=== PATIENT | male | born 1950 | race Caucasian/White ===

== ENCOUNTER 2017-06-22 07:41 | Emergency (ER) | payer MEDICARE, BC ==
--- NOTE | 2017-06-22 07:55 | EDM.PDOC ---
ED HPI GENERAL MEDICAL PROBLEM - General Chief Complaint: Skin Complaint Stated Complaint: LEFT LEG BLEEDING Time Seen by Provider: 06/22/17 07:46 - History of Present Illness INITIAL COMMENTS - FREE TEXT/NARRATIVE: HISTORY AND PHYSICAL: History of present illness: Patient 66-year-old male presents with a concern of bleeding from his left leg he states he had a small excoriated area that he scratched and it bled somewhat more significantly than he expected. He denies other trauma or concern Review of systems: As per history of present illness and below otherwise all systems reviewed and negative. Past medical history: As per history of present illness and as reviewed below otherwise noncontributory. Surgical history: As per history of present illness and as reviewed below otherwise noncontributory. Social history: No reported history of drug or alcohol abuse. Family history: As per history of present illness and as reviewed below otherwise noncontributory. Physical exam: HEENT: Atraumatic, normocephalic, pupils reactive, negative for conjunctival pallor or scleral icterus, mucous membranes moist, throat clear, neck supple, nontender, trachea midline. Lungs: Clear to auscultation, breath sounds equal bilaterally, chest nontender. Heart: S1S2, regular, negative for clicks, rubs, or JVD. Abdomen: Soft, nondistended, nontender. Negative for masses or hepatosplenomegaly. Negative for costovertebral tenderness. Pelvis: Stable nontender. Genitourinary: Deferred. Rectal: Deferred. Extremities: Patient is noted have a superficial varicosity left lateral aspect of his leg distally is good hemostasis upon arrival was cleansed and dressed with an occlusive dressing CMS neurovascular is unremarkable Neuro: Awake, alert, oriented. Cranial nerves II through XII unremarkable. Cerebellum unremarkable. Motor and sensory unremarkable throughout. Exam nonfocal. Diagnostics: None Therapeutics: None Impression: #1 bleeding varicosity left lower extremity Definitive disposition and diagnosis as appropriate pending reevaluation and review of above. - Related Data Allergies Allergy/AdvReac Type Severity Reaction Status Date / Time No Known Allergies Allergy Verified 10/07/14 08:28 Home Meds: Home Meds Aspirin [Adult Low Dose Aspirin EC] 81 mg PO BID PRN 01/01/15 [History] Clopidogrel [Plavix] 75 mg PO DAILY 01/01/15 [History] HYDROmorphone [Dilaudid] 2 mg PO Q3H 01/01/15 [History] Metoprolol Tartrate [Lopressor] 25 mg PO BID 01/01/15 [History] Multivitamin [Multivitamins] 1 cap PO DAILY 01/01/15 [History] Nitroglycerin [Nitrostat] 0.4 mg SL Q5M PRN 01/01/15 [History] Vitamin A 5,000 units PO DAILY 01/01/15 [History] Vitamin B Complex 1 each PO DAILY 01/01/15 [History] atorvaSTATin [Lipitor] 40 mg PO BEDTIME 01/01/15 [History] Social & Family History - Tobacco Use Smoking Status *Q: Former Smoker Second Hand Smoke Exposure: No - Recreational Drug Use Recreational Drug Use: No ED ROS GENERAL - Review of Systems Review Of Systems: ROS reveals no pertinent complaints other than HPI. ED EXAM, SKIN/RASH Exam: See Below (See dictation) Departure - Departure Time of Disposition: 07:54 Disposition: Home, Self-Care 01 Condition: Good Clinical Impression: Bleeding from varicose vein - Discharge Information Referrals: PCP,None [Primary Care Provider] - Additional Instructions: The following information is given to patients seen in the emergency department who are being discharged to home. This information is to outline your options for follow-up care. We provide all patients seen in our emergency department with a follow-up referral. The need for follow-up, as well as the timing and circumstances, are variable depending upon the specifics of your emergency department visit. If you don't have a primary care physician on staff, we will provide you with a referral. We always advise you to contact your personal physician following an emergency department visit to inform them of the circumstance of the visit and for follow-up with them and/or the need for any referrals to a consulting specialist. The emergency department will also refer you to a specialist when appropriate. This referral assures that you have the opportunity for followup care with a specialist. All of these measure are taken in an effort to provide you with optimal care, which includes your followup. Under all circumstances we always encourage you to contact your private physician who remains a resource for coordinating your care. When calling for followup care, please make the office aware that this follow-up is from your recent emergency room visit. If for any reason you are refused follow-up, please contact the [facility] emergency department at and asked to speak to the emergency department charge nurse. [facility] [address] [place] [id number] Follow-up primary medical doctor and/or plastic surgery above as needed as discussed return as needed as discussed
[2017-06-22 08:00] VITALS: BP 121/86
== END 2017-06-22 08:10 | disposition home or self-care (01) ==
LOC: MW.ED 07:41
DX: I83.892 Varicose veins of left lower extremity with other complications (principal); Z79.82 Long term (current) use of aspirin; Z79.899 Other long term (current) drug therapy; Z87.891 Personal history of nicotine dependence
CPT/HCPCS: 99282

== ENCOUNTER 2019-04-20 17:08 | Emergency (ER) | payer MEDICARE, BC ==
[2019-04-20 17:30] VITALS: BP 126/90; PULSE 92
--- NOTE | 2019-04-20 19:01 | EDM.PDOC ---
ED HPI GENERAL MEDICAL PROBLEM - General Chief Complaint: ENT Problem Stated Complaint: FACIAL SWELLING/FEVER Time Seen by Provider: 04/20/19 18:56 - History of Present Illness INITIAL COMMENTS - FREE TEXT/NARRATIVE: HISTORY AND PHYSICAL: History of present illness: Patient is a 68-year-old male presents ot [facility] ED with complaint of facial pain and redness. He states he had a fever of 104 yesterday. States that he has felt well today but still having redness to the right side of his face and states it is slightly tender. He has had some dental pain but this is not new or worsened. He denies nausea, vomiting, headache, eye pain. Review of systems: As per history of present illness and below otherwise all systems reviewed and negative. Past medical history: As per history of present illness and as reviewed below otherwise noncontributory. Surgical history: As per history of present illness and as reviewed below otherwise noncontributory. Social history: No reported history of drug or alcohol abuse. Family history: As per history of present illness and as reviewed below otherwise noncontributory. Physical exam: General: Patient sitting comfortably in no acute distress and nontoxic appearing HEENT: Erythema and warmth to the left side fo the face and forehead bilaterally. No dental abscess or infection noted. Atraumatic, normocephalic, pupils reactive, negative for conjunctival pallor or scleral icterus, mucous membranes moist, throat clear, neck supple, nontender, trachea midline. No meningeal signs. Lungs: Clear to auscultation, breath sounds equal bilaterally, chest nontender. Heart: S1S2, regular, negative for clicks, rubs, or overt murmur. Abdomen: Soft, nondistended, nontender. Negative for masses or hepatosplenomegaly. Negative for costovertebral tenderness. No rigidity, rebound , guarding. Pelvis: Stable nontender. Genitourinary: Deferred. Rectal: Deferred. Extremities: Atraumatic, negative for cords or calf pain. Neurovascular unremarkable. Neuro: Awake, alert, oriented. Cranial nerves II through XII unremarkable. Cerebellum unremarkable. Motor and sensory unremarkable throughout. Exam nonfocal. Notes: Patient was offered IV antibiotics and labs which he declined. Diagnostics: declined Therapeutics: [] Prescriptions: Keflex Prednisone Impression: facial cellulitis Definitive disposition and diagnosis as appropriate pending reevaluation and review of above. - Related Data Allergies Allergy/AdvReac Type Severity Reaction Status Date / Time No Known Allergies Allergy Verified 04/20/19 17:30 Home Meds: Home Meds Aspirin [Adult Low Dose Aspirin EC] 81 mg PO BID PRN 01/01/15 [History] Metoprolol Tartrate [Lopressor] 25 mg PO BID 01/01/15 [History] Multivitamin [Multivitamins] 1 cap PO DAILY 01/01/15 [History] Nitroglycerin [Nitrostat] 0.4 mg SL Q5M PRN 01/01/15 [History] Vitamin A 5,000 units PO DAILY 01/01/15 [History] Vitamin B Complex 1 each PO DAILY 01/01/15 [History] atorvaSTATin [Lipitor] 40 mg PO BEDTIME 01/01/15 [History] cephALEXin [Keflex] 500 mg PO Q8H 7 Days #21 cap 04/20/19 [Rx] predniSONE [Prednisone] 20 mg PO DAILY #5 tablet 04/20/19 [Rx] Past Medical History HEENT History: Reports: Impaired Vision Cardiovascular History: Reports: Hypertension - Infectious Disease History Infectious Disease History: Reports: Chicken Pox, Measles Social & Family History - Family History Family Medical History: Noncontributory - Tobacco Use Smoking Status *Q: Never Smoker - Recreational Drug Use Recreational Drug Use: No ED ROS ENT - Review of Systems Review Of Systems: Comprehensive ROS is negative, except as noted in HPI. ED EXAM, ENT - Physical Exam Exam: See Below (see dictation) Course - Vital Signs Last Recorded V/S: Last Vital Signs Temp 98.6 F 04/20/19 17:26 Pulse 92 04/20/19 17:26 Resp 16 04/20/19 17:26 BP 126/90 04/20/19 17:26 Pulse Ox 94 L 04/20/19 17:26 Departure - Departure Time of Disposition: 18:56 Disposition: Home, Self-Care 01 Condition: Good Clinical Impression: Facial cellulitis - Discharge Information Prescriptions: cephALEXin [Keflex] 500 mg PO Q8H 7 Days #21 cap predniSONE [Prednisone] 20 mg PO DAILY #5 tablet Referrals: Jaquan Osman MD [Primary Care Provider] - Additional Instructions: The following information is given to patients seen in the emergency department who are being discharged to home. This information is to outline your options for follow-up care. We provide all patients seen in our emergency department with a follow-up referral. The need for follow-up, as well as the timing and circumstances, are variable depending upon the specifics of your emergency department visit. If you don't have a primary care physician on staff, we will provide you with a referral. We always advise you to contact your personal physician following an emergency department visit to inform them of the circumstance of the visit and for follow-up with them and/or the need for any referrals to a consulting specialist. The emergency department will also refer you to a specialist when appropriate. This referral assures that you have the opportunity for follow-up care with a specialist. All of these measure are taken in an effort to provide you with optimal care, which includes your follow-up. Under all circumstances we always encourage you to contact your private physician who remains a resource for coordinating your care. When calling for follow-up care, please make the office aware that this follow-up is from your recent emergency room visit. If for any reason you are refused follow-up, please contact the [facility] Emergency Department at and asked to speak to the emergency department charge nurse. [facility] [address] [place] [address] [id number] Take medications as instructed Follow up with primary care provider Return to ED as needed as discussed Sepsis Event Note - Evaluation Sepsis Screening Result: No Definite Risk - Focused Exam Vital Signs: Vital Signs Temp Pulse Resp BP Pulse Ox 04/20/19 17:26 98.6 F 92 16 126/90 94 L Date Exam was Performed: 04/20/19 Time Exam was Performed: 18:56
== END 2019-04-20 19:09 | disposition home or self-care (01) ==
LOC: MW.ED 17:08
DX: L03.211 Cellulitis of face (principal); I10 Essential (primary) hypertension; Z79.82 Long term (current) use of aspirin; Z79.899 Other long term (current) drug therapy
CPT/HCPCS: 99283

== ENCOUNTER 2020-11-17 12:37 | Emergency (ER) | payer MEDICARE ==
[2020-11-17] MEDS ORDERED: Sodium Chloride 0.9% 10 ML SDV IV PRN (13:14)
[2020-11-17] MEDS ORDERED: Sodium Chloride 0.9% 10 ML Syringe FLUSH PRN (13:14)
[2020-11-17] MEDS ORDERED: Sodium Chloride 0.9% 2.5 ML Syringe FLUSH PRN (13:14)
--- NOTE | 2020-11-17 13:22 | PCM.SN.2 ---
- Free Text/Narrative Note: EKG 1309 hrs. sinus rhythm heart rate 60 VT [address] changes in the lateral leads and T changes as well. Compared to 01/01/2015 no change impression no acute injury
--- NOTE | 2020-11-17 13:27 | EDM.PDOC ---
ED HPI GENERAL MEDICAL PROBLEM - General Chief Complaint: General Stated Complaint: DIZZY,EYES CANT FOCUS,COUGH Time Seen by Provider: 11/17/20 13:10 Source of Information: Reports: Patient History Limitations: Reports: No Limitations - History of Present Illness INITIAL COMMENTS - FREE TEXT/NARRATIVE: HISTORY AND PHYSICAL: History of present illness: Patient is a 69-year-old male who presents to the emergency room with complaints of blurred vision, weakness, body aches, cough and subjective fevers over the past 3 to 4 days. A family member who is at bedside states that he has been under a considerable amount of stress over the past 1 week. Patient's mother last week, and held the and his brother was recently sent to [facility] in [place] to receive higher level of care. The family member states that he has been very drowsy, complaining of chest pain and saying he is "so sore he cannot get out of bed". Patient was in crowded groups and is concerned he may have caught COVID-19. Patient states he did have an episode of dizziness and blurred vision this morning which is now resolved. Last episode of chest pain was yesterday, currently chest pain free. The family member did call his provider at [facility] who recommended he come for an evaluation. The patient is not able to be seen at the clinic until Tuesday and decided to come to the emergency room to get "a full checkup". Patient denies any chills, headache, syncope or near syncope. Denies any back pain, shortness of breath or cough. Denies any abdominal pain, nausea, vomiting, diarrhea, constipation or dysuria. Has not noted any blood in urine or stool. Patient has been eating and drinking appropriately. Patient has a past medical history of hypertension, [place] with bypass. Review of systems: As per history of present illness and below otherwise all systems reviewed and negative. Past medical history: As per history of present illness and as reviewed below otherwise noncontributory. Surgical history: As per history of present illness and as reviewed below otherwise noncontributory. Social history: See social history for further information Family history: As per history of present illness and as reviewed below otherwise noncontributory. Physical exam: General: Well developed and well nourished 69 year old male. Alert and orientated x 3. Nontoxic in appearance and in no acute distress. Vital signs are stable and have been reviewed by me. Nursing notes were reviewed. HEENT: Atraumatic, normocephalic, pupils equal and reactive bilaterally, negativ e for conjunctival pallor or scleral icterus, mucous membranes moist, TMs normal bilaterally, throat clear, neck supple, nontender, trachea midline. No drooling or trismus noted. No meningeal signs. No hot potato voice noted. Lungs: Clear to auscultation bilaterally. No wheezes, rales, or rhonchi. Chest nontender. Normal work of breathing, no accessory muscles used. Heart: S1S2, regular rate and rhythm without overt murmur, gallops, or rubs. No JVD. No peripheral edema Abdomen: Soft, nondistended, nontender. Normoactive bowel sounds. Negative for masses or costovertebral tenderness. Skin: Intact, warm, dry. No lesions or rashes noted. Hematologic: No petechiae or purpra. Mucosa appropriate color and normal nail bed color and refill. Extremities: Atraumatic, moves all extremities per self without difficulty or deficits, negative for cords or calf pain. Neurovascular unremarkable. Neuro: Awake, alert, oriented. Cranial nerves II through XII unremarkable. Cerebellum unremarkable. Motor and sensory unremarkable throughout. Exam nonfocal. Psychiatric: Mood and affect are appropriate. Normal thought process. Answering questions appropriately. Notes: *This patient was seen and evaluated during the 2019 SARS-CoV-2 novel coronavirus pandemic period. Community viral transmission is ongoing at time of this encounter and the emergency department is operating under pandemic response procedures. Patient is a 69-year-old male who presents to the emergency room with multiple vague complaints. Patient did call his provider at [facility] who requested he come to the emergency room for COVID-19 testing. When asked if that is why he is here for evaluation the family member states that they want "everything checked out". She states he did need to be cleared for COVID-19 prior to following up with his primary care provider that he is establishing on Tuesday but due to his cardiac history wanted to make sure nothing more was going on. My physical exam is unremarkable, no concerning findings. Chest x-ray shows no acute findings and no significant changes from the prior exam. Head CT shows no intracranial hemorrhage or territorial infarction. 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 Angio head shows normal CT angiogram of the head without intracranial aneurysm or other neurovascular abnormality. Normal CT angiogram of the neck. I have talked with the patient about today's findings, in addition to providing specific details for plan of care. Reassessment at the time of disposition demonstrates that the patient is in no acute distress. Patient states that they need proof of his COVID-19 results before his appointment on Tuesday. This will be printed in his discharge packet. He states he feels fine at this time and offers no c urrent complaints or concerns. The patient is stable for discharge, counseling was provided and we discussed in great detail signs and symptoms that would prompt them to return to the Emergency Department. Medication, follow up and supportive care measures were reviewed and discussed. Voices understanding and is agreeable to plan of care. Denies any further questions or concerns at this time. Diagnostics: CBC, CMP, troponin, EKG, chest x-ray, head CT Therapeutics: SL Prescription: None Impression: Viral URI Dizziness Encounter for COVID-19 testing, negative Plan: 1. You were evaluated today on an emergent basis. Your blood work, including COVID-19 screening are within normal limits (negative COVID-19). Your chest x- ray shows no pneumonia or active infection. Your head/neck CT shows no acute findings. 2. You can alternate Tylenol and ibuprofen as needed for pain and fever management. 3. We encourage you to follow up with your primary care provider and/or recommended specialist in the next few days for re-evaluation and further care/management. 4. If your symptoms should worsen, new symptoms develop or any of the signs and symptoms we discussed should arise please return to the emergency room or call 911 (if needed). Definitive disposition and diagnosis as appropriate pending reevaluation and review of above. - Related Data Allergies Allergy/AdvReac Type Severity Reaction Status Date / Time No Known Allergies Allergy Verified 11/17/20 12:49 Home Meds: Home Meds Aspirin [Adult Low Dose Aspirin EC] 81 mg PO BID PRN 01/01/15 [History] Metoprolol Tartrate [Lopressor] 25 mg PO BID 01/01/15 [History] Multivitamin [Multivitamins] 1 cap PO DAILY 01/01/15 [History] Nitroglycerin [Nitrostat] 0.4 mg SL Q5M PRN 01/01/15 [History] Vitamin A 5,000 units PO DAILY 01/01/15 [History] Vitamin B Complex 1 each PO DAILY 01/01/15 [History] atorvaSTATin [Lipitor] 40 mg PO BEDTIME 01/01/15 [History] cephALEXin [Keflex] 500 mg PO Q8H 7 Days #21 cap 04/20/19 [Rx] predniSONE [Prednisone] 20 mg PO DAILY #5 tablet 04/20/19 [Rx] Past Medical History HEENT History: Reports: Impaired Vision Cardiovascular History: Reports: Hypertension, [place] - Infectious Disease History Infectious Disease History: Reports: Chicken Pox, Measles - Past Surgical History Cardiovascular Surgical History: Reports: Coronary Artery Bypass Social & Family History - Family History Family Medical History: No Pertinent Family History - Tobacco Use Tobacco Use Status *Q: Never Tobacco User - Recreational Drug Use Recreational Drug Use: No ED ROS GENERAL - Review of Systems Review Of Systems: Comprehensive ROS is negative, except as noted in HPI. ED EXAM, GENERAL - Physical Exam Exam: See Below (See dictation) Course - Vital Signs Last Recorded V/S: Last Vital Signs Temp 98 F 11/17/20 12:47 Pulse 62 11/17/20 15:53 Resp 20 11/17/20 15:53 BP 143/88 H 11/17/20 15:53 Pulse Ox 96 11/17/20 15:53 - Orders/Labs/Meds Orders: Active Orders 24 hr Category Date Time Status Cardiac Monitoring [RC] . DIRECTED Care 11/17/20 13:14 Active Oxygen Therapy [RC] ASDIRECTED Care 11/17/20 13:14 Active Sodium Chloride 0.9% [Normal Saline] Med 11/17/20 13:14 Active 10 ml IV ASDIRECTED PRN Sodium Chloride 0.9% [Saline Flush] Med 11/17/20 13:14 Active 10 ml FLUSH ASDIRECTED PRN Sodium Chloride 0.9% [Saline Flush] Med 11/17/20 13:14 Active 2.5 ml FLUSH ASDIRECTED PRN Peripheral IV Insertion Adult [OM.PC] Stat Oth 11/17/20 13:14 Ordered Medication Orders Sodium Chloride (Sodium Chloride 0.9% 10 Ml Syringe) 10 ml FLUSH ASDIRECTED PRN PRN Reason: Keep Vein Open Last Admin: 11/17/20 13:37 Dose: 10 ml Documented by: ROSANNE Sodium Chloride (Sodium Chloride 0.9% 2.5 Ml Syringe) 2.5 ml FLUSH ASDIRECTED PRN PRN Reason: Keep Vein Open Last Admin: 11/17/20 13:37 Dose: 2.5 ml Documented by: ROSANNE Sodium Chloride (Sodium Chloride 0.9% 10 Ml Sdv) 10 ml IV ASDIRECTED PRN PRN Reason: IV Use Labs: Laboratory Tests 11/17/20 11/17/20 11/17/20 Range/Units 12:50 13:30 13:30 WBC 6.13 (4.0-11.0) K/uL RBC 4.54 (4.50-5.90) M/uL Hgb 14.7 (13.0-17.0) g/dL Hct 41.7 (38.0-50.0) % MCV 91.9 (80.0-98.0) fL MCH 32.4 H (27.0-32.0) pg MCHC 35.3 (31.0-37.0) g/dL RDW Std Deviation 42.7 (28.0-62.0) fl RDW Coeff of Christian 13 (11.0-15.0) % Plt Count 149 L (150-400) K/uL MPV 10.10 (7.40-12.00) fL Neut % (Auto) 40.8 L (48.0-80.0) % Lymph % (Auto) 44.0 H (16.0-40.0) % [place] % (Auto) 12.7 (0.0-15.0) % Eos % (Auto) 2.0 (0.0-7.0) % Baso % (Auto) 0.5 (0.0-1.5) % Neut # (Auto) 2.5 (1.4-5.7) K/uL Lymph # (Auto) 2.7 H (0.6-2.4) K/uL [place] # (Auto) 0.8 (0.0-0.8) K/uL Eos # (Auto) 0.1 (0.0-0.7) K/uL Baso # (Auto) 0.0 (0.0-0.1) K/uL Nucleated RBC % 0.0 /100WBC Nucleated RBCs # 0 K/uL Sodium 139 (136-148) mmol/L Potassium 3.9 (3.5-5.1) mmol/L Chloride 104 (98-107) mmol/L Carbon Dioxide 29.5 (21.0-32.0) mmol/L BUN 15 (7.0-18.0) mg/dL Creatinine 1.1 (0.8-1.3) mg/dL Est Cr Clr Drug Dosing 67.50 mL/min Estimated GFR (MDRD) > 60.0 ml/min Glucose 107 H (74-106) mg/dL Calcium 8.7 (8.5-10.1) mg/dL Total Bilirubin 1.4 H (0.2-1.0) mg/dL AST 44 H (15-37) IU/L ALT 43 (14-63) IU/L Alkaline Phosphatase 92 (46-116) U/L Creatine Kinase 98 (26-308) U/L Troponin I < 0.050 (0.000-0.056) ng/mL Total Protein 7.2 (6.4-8.2) g/dL Albumin 3.8 (3.4-5.0) g/dL Globulin 3.4 (2.6-4.0) g/dL Albumin/Globulin Ratio 1.1 (0.9-1.6) Urine Color Urine Appearance Urine pH (5.0-8.0) Ur Specific [place] (1.001-1.035) Urine Protein (NEGATIVE) mg/dL Urine Glucose (UA) (NEGATIVE) mg/dL Urine Ketones (NEGATIVE) mg/dL Urine Occult Blood (NEGATIVE) Urine Nitrite (NEGATIVE) Urine Bilirubin (NEGATIVE) Urine Ictotest Urine Urobilinogen (<2.0) EU/dL Ur Leukocyte Esterase (NEGATIVE) SARS-CoV-2 RNA (LANDY) NEGATIVE (NEGATIVE) 11/17/20 Range/Units 14:10 WBC (4.0-11.0) K/uL RBC (4.50-5.90) M/uL Hgb (13.0-17.0) g/dL Hct (38.0-50.0) % MCV (80.0-98.0) fL MCH (27.0-32.0) pg MCHC (31.0-37.0) g/dL RDW Std Deviation (28.0-62.0) fl RDW Coeff of Christian (11.0-15.0) % Plt Count (150-400) K/uL MPV (7.40-12.00) fL Neut % (Auto) (48.0-80.0) % Lymph % (Auto) (16.0-40.0) % [place] % (Auto) (0.0-15.0) % Eos % (Auto) (0.0-7.0) % Baso % (Auto) (0.0-1.5) % Neut # (Auto) (1.4-5.7) K/uL Lymph # (Auto) (0.6-2.4) K/uL [place] # (Auto) (0.0-0.8) K/uL Eos # (Auto) (0.0-0.7) K/uL Baso # (Auto) (0.0-0.1) K/uL Nucleated RBC % /100WBC Nucleated RBCs # K/uL Sodium (136-148) mmol/L Potassium (3.5-5.1) mmol/L Chloride (98-107) mmol/L Carbon Dioxide (21.0-32.0) mmol/L BUN (7.0-18.0) mg/dL Creatinine (0.8-1.3) mg/dL Est Cr Clr Drug Dosing mL/min Estimated GFR (MDRD) ml/min Glucose (74-106) mg/dL Calcium (8.5-10.1) mg/dL Total Bilirubin (0.2-1.0) mg/dL AST (15-37) IU/L ALT (14-63) IU/L Alkaline Phosphatase (46-116) U/L Creatine Kinase (26-308) U/L Troponin I (0.000-0.056) ng/mL Total Protein (6.4-8.2) g/dL Albumin (3.4-5.0) g/dL Globulin (2.6-4.0) g/dL Albumin/Globulin Ratio (0.9-1.6) Urine Color YELLOW Urine Appearance CLEAR Urine pH 5.5 (5.0-8.0) Ur Specific [place] >= 1.030 (1.001-1.035) Urine Protein NEGATIVE (NEGATIVE) mg/dL Urine Glucose (UA) NEGATIVE (NEGATIVE) mg/dL Urine Ketones NEGATIVE (NEGATIVE) mg/dL Urine Occult Blood NEGATIVE (NEGATIVE) Urine Nitrite NEGATIVE (NEGATIVE) Urine Bilirubin SMALL H (NEGATIVE) Urine Ictotest NEGATIVE Urine Urobilinogen 1.0 (<2.0) EU/dL Ur Leukocyte Esterase NEGATIVE (NEGATIVE) SARS-CoV-2 RNA (LANDY) (NEGATIVE) Meds: Medications Generic Name Dose Route Start Last Admin Trade Name Freq PRN Reason Stop Dose Admin Sodium Chloride 10 ml 11/17/20 13:14 11/17/20 13:37 Sodium Chloride 0.9% 10 Ml Syringe FLUSH 10 ml ASDIRECTED PRN Administration Keep Vein Open Sodium Chloride 2.5 ml 11/17/20 13:14 11/17/20 13:37 Sodium Chloride 0.9% 2.5 Ml Syringe FLUSH 2.5 ml ASDIRECTED PRN Administration Keep Vein Open Sodium Chloride 10 ml 11/17/20 13:14 Sodium Chloride 0.9% 10 Ml Sdv IV ASDIRECTED PRN IV Use Departure - Departure Time of Disposition: 16:07 Disposition: Home, Self-Care 01 Clinical Impression: Dizziness, Viral URI, Lab test negative for COVID-19 virus - Discharge Information Instructions: Viral Respiratory Infection, [id number] Referrals: PCP,None [Primary Care Provider] - Forms: ED Department Discharge Additional Instructions: The following information is given to patients seen in the emergency department who are being discharged to home. This information is to outline your options for follow-up care. We provide all patients seen in our emergency department with a follow-up referral. The need for follow-up, as well as the timing and circumstances, are variable depending upon the specifics of your emergency department visit. If you don't have a primary care physician on staff, we will provide you with a referral. We always advise you to contact your personal physician following an emergency department visit to inform them of the circumstance of the visit and for follow-up with them and/or the need for any referrals to a consulting specialist. The emergency department will also refer you to a specialist when appropriate. This referral assures that you have the opportunity for follow-up care with a specialist. All of these measure are taken in an effort to provide you with optimal care, which includes your follow-up. Under all circumstances we always encourage you to contact your private physician who remains a resource for coordinating your care. When calling for follow-up care, please make the office aware that this follow-up is from your recent emergency room visit. If for any reason you are refused follow-up, please contact the [facility] Emergency Department at and asked to speak to the emergency department charge nurse. [facility] [address] [place] [address] [facility] [address] [place] [id number] Thank you for choosing the [facility] emergency department in [place] for your medical needs today. It was a pleasure caring for you. Today you were seen in the emergency department for COVID-19 screening, dizziness and viral upper respiratory illness. 1. You were evaluated today on an emergent basis. Your blood work, including COVID-19 screening are within normal limits (negative COVID-19). Your chest x- ray shows no pneumonia or active infection. Your head/neck CT shows no acute findings. 2. You can alternate Tylenol and ibuprofen as needed for pain and fever management. 3. We encourage you to follow up with your primary care provider and/or recommended specialist in the next few days for re-evaluation and further care/management. 4. If your symptoms should worsen, new symptoms develop or any of the signs and symptoms we discussed should arise please return to the emergency room or call 911 (if needed). Sepsis Event Note (ED) - Evaluation Sepsis Screening Result: No Definite Risk - Focused Exam Vital Signs: Vital Signs Temp Pulse Resp BP Pulse Ox Pulse Ox 11/17/20 15:53 62 20 143/88 H 96 11/17/20 15:03 56 L 18 135/98 H 93 L 11/17/20 14:15 62 20 143/93 H 94 L 11/17/20 14:13 94 L 11/17/20 13:30 62 18 138/71 93 L 11/17/20 12:47 98 F 64 18 141/95 H 93 L - My Orders Last 24 Hours: My Active Orders 11/17/20 13:14 Cardiac Monitoring [RC] . DIRECTED Oxygen Therapy [RC] ASDIRECTED Sodium Chloride 0.9% [Normal Saline] 10 ml IV ASDIRECTED PRN Sodium Chloride 0.9% [Saline Flush] 10 ml FLUSH ASDIRECTED PRN Sodium Chloride 0.9% [Saline Flush] 2.5 ml FLUSH ASDIRECTED PRN Peripheral IV Insertion Adult [OM.PC] Stat - Assessment/Plan Last 24 Hours: My Active Orders 11/17/20 13:14 Cardiac Monitoring [RC] . DIRECTED Oxygen Therapy [RC] ASDIRECTED Sodium Chloride 0.9% [Normal Saline] 10 ml IV ASDIRECTED PRN Sodium Chloride 0.9% [Saline Flush] 10 ml FLUSH ASDIRECTED PRN Sodium Chloride 0.9% [Saline Flush] 2.5 ml FLUSH ASDIRECTED PRN Peripheral IV Insertion Adult [OM.PC] Stat
--- NOTE | 2020-11-17 14:18 | CR ---
INDICATION: Shortness of breath TECHNIQUE: Chest 1 views COMPARISON: 01/01/2015 FINDINGS: Cardiovascular and mediastinum: Heart size and vasculature are normal in caliber and appearance. Lungs and pleural spaces: Lungs are clear. No sign of infiltrate or mass. No sign of pleural effusion. No pneumothorax. Bones and soft tissues: No significant findings. IMPRESSION: No acute findings and no significant changes from the prior exam. Dictated by Jimbo Liu MD @ 11/17/2020 2:17:[address] Jimbo Liu @ Nov 17 2020 2:17PM
[2020-11-17 14:29] LABS: BLOOD UREA NITROGEN,BUN 15 mg/dL (7.0-18.0); CARBON DIOXIDE,CO2 29.5 mmol/L (21.0-32.0); CHLORIDE,CL 104 mmol/L (98-107); GLUCOSE RANDOM 107 mg/dL (74-106); POTASSIUM,K 3.9 mmol/L (3.5-5.1); SODIUM,NA 139 mmol/L (136-148)
--- NOTE | 2020-11-17 15:39 | CT ---
DATE: 11/17/2020 CLINICAL HISTORY: Patient with vision changes, dizziness, weakness. TECHNIQUE: Standard CT scanning of the head was performed. COMPARISON: None. FINDINGS: There is no intracranial hemorrhage. There is no territorial infarction. There are severe microangiopathic changes. There is diffuse parenchymal volume loss. There is no mass effect or midline shift. The calvarium is unremarkable. The orbits are unremarkable. The paranasal sinuses are unremarkable. The mastoid air cells are unremarkable. The soft tissues are unremarkable. IMPRESSION: 1. No intracranial hemorrhage or territorial infarction. 2. 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 Please note that all CT scans at this facility use dose modulation, iterative reconstruction, and/or weight-based dosing when appropriate to reduce radiation dose to as low as reasonably achievable. Dictated by Cari Driscoll MD @ 11/17/2020 3:39:[address] Cari Driscoll @ Nov 17 2020 3:39PM
--- NOTE | 2020-11-17 15:44 | CT ---
DATE: 11/17/2020 CLINICAL HISTORY: Patient with vision changes, dizziness, weakness. TECHNIQUE: Standard helical CT image acquisition through the intracranial circulation following intravenous administration of contrast material with bolus tracking. Multiplanar reconstructed images were performed and interpreted. COMPARISON: CT same day FINDINGS: There is no cerebral aneurysm or large vessel occlusion. The right internal carotid artery is normal. The right middle cerebral artery and its branches are normal. The right anterior cerebral artery and its branches are normal. The left internal carotid artery is normal. The left middle cerebral artery and its branches are normal. The left anterior cerebral artery and its branches are normal. The anterior communicating artery is well visualized and appears normal. The right vertebral artery and PICA are normal. The left vertebral artery and PICA are normal. The left vertebral artery is dominant. The basilar artery is patent and appears normal. The right posterior cerebral artery is normal. The left posterior cerebral artery is normal. The visualized venous structures are patent. IMPRESSION: Normal CT angiogram of the head without intracranial aneurysm or other neurovascular abnormality. Please note that all CT scans at this facility use dose modulation, iterative reconstruction, and/or weight-based dosing when appropriate to reduce radiation dose to as low as reasonably achievable. Dictated by Cari Driscoll MD @ 11/17/2020 3:42:[address] Cari Driscoll @ Nov 17 2020 3:42PM
--- NOTE | 2020-11-17 15:58 | CT ---
For Patients: As a result of the Century Cures Act, medical imaging exams and procedure reports are released immediately into your electronic medical record. You may view this report before your referring provider. If you have questions, please contact your health care provider. CT ANGIOGRAM NECK DATE: 11/17/2020 CLINICAL HISTORY: Patient with vision changes, dizziness, weakness. TECHNIQUE: Standard helical CT image acquisition of the neck up to the skull base after bolus intravenous contrast enhancement. Multiplanar reconstructed images performed on a separate workstation. COMPARISON: CT same day. FINDINGS: The origins of the great vessels from the aortic arch are patent. The origin of the right vertebral artery is patent. The origin of the left vertebral artery is patent. The common carotid arteries are patent. There is plaque without stenosis at the origin of the right internal carotid artery. There is plaque without stenosis at the origin of the left internal carotid artery. The rest of the cervical segments of the internal carotid arteries are patent up to the skull base. The left vertebral artery is dominant. The cervical segments of the vertebral arteries are patent up to the skull base. The visualized intracranial vasculature is unremarkable. The visualized lung apices are unremarkable. The thyroid gland is unremarkable. The soft tissues of the neck are unremarkable. There are degenerative changes in the cervical spine. IMPRESSION: Normal CT angiogram of the neck. Please note that all CT scans at this facility use dose modulation, iterative reconstruction, and/or weight-based dosing when appropriate to reduce radiation dose to as low as reasonably achievable. Dictated by: Cari Driscoll MD @ 11/17/2020 15:57:59 (Electronically Signed)
[2020-11-17 16:28] VITALS: BP 132/71; PULSE 56
== END 2020-11-17 16:25 | disposition home or self-care (01) ==
LOC: MW.ED 12:37
DX: J06.9 Acute upper respiratory infection, unspecified (principal); R42 Dizziness and giddiness; I10 Essential (primary) hypertension; I25.2 Old myocardial infarction; Z95.1 Presence of aortocoronary bypass graft; Z79.82 Long term (current) use of aspirin; Z79.899 Other long term (current) drug therapy; Z20.822 Contact with and (suspected) exposure to COVID-19
CPT/HCPCS: 36415; 70450; 70496; 70498; 71045; 80053; 81003; 82550; 84484; 85025; 93005; 99285; U0002; 93010; 99283

== ENCOUNTER 2023-03-22 11:31 | Emergency (ER) | payer MEDICARE, OTHER ==
[2023-03-22] MEDS ORDERED: Aspirin 81 MG Tab.Chew PO ONE ×2 (11:49→11:52)
[2023-03-22 11:52] LABS: BASOPHILS ABSOLUTE AUTO 0.07 K/uL (0.00-0.20); EOSINOPHILS ABSOLUTE AUTO 0.16 K/uL (0.00-0.45); EOSINOPHILS PERCENT AUTO 2.3 % (0.0-6.0); HEMATOCRIT 39.3 % (42.0-52.0); HEMOGLOBIN 14.4 g/dL (14.0-18.0); IMMATURE GRAN ABSOLUTE AUTO 0.06 K/uL (0.00-0.05); IMMATURE GRAN PERCENT AUTO 0.9 % (0.0-0.4); LYMPHOCYTES ABSOLUTE AUTO 2.54 K/uL (1.00-4.80); LYMPHOCYTES PERCENT AUTO 36.1 % (24.0-44.0); MEAN CORPUSCULAR HEMOGLOBIN 33.6 pg (28.0-32.0); MEAN CORPUSCULAR HGB CONC 36.6 g/dL (32.0-36.0); MEAN CORPUSCULAR VOLUME 91.6 fL (83.0-99.0); MEAN PLATELET VOLUME 9.5 fL (9.4-12.4); MONOCYTES ABSOLUTE AUTO 0.62 K/uL (0.00-0.80); MONOCYTES PERCENT AUTO 8.8 % (0.0-8.0); NEUTROPHILS ABSOLUTE AUTO 3.58 K/uL (1.80-7.70); NEUTROPHILS PERCENT AUTO 50.9 % (41.0-71.0); PLATELET COUNT,PLT 145 K/uL (150-400); RED BLOOD CELL COUNT 4.29 M/uL (4.52-5.90); WHITE BLOOD CELL COUNT,WBC 7.03 K/uL (3.9-11.3)
[2023-03-22 12:09] LABS: D-DIMER QUANTITATIVE 0.59 mg/L FEU (0.00-0.50); INR 1.07 (0.86-1.11); PTT,PARTIAL THROMBOPLSTIN TIME 26.2 SEC (23.9-30.7)
[2023-03-22 12:30] LABS: A/G RATIO 1.2 (0.9-1.6); ALBUMIN 4.2 g/dL (3.4-5.0); BILIRUBIN TOTAL 0.7 mg/dL (0.2-1.0); CARBON DIOXIDE,CO2 25.5 mmol/L (21.0-32.0); CREATININE 1.1 mg/dL (0.8-1.3); EST CRCL DRUG DOSING (CG) 64.65 mL/min; MAGNESIUM 1.8 mg/dL (1.8-2.4); POTASSIUM,K 4.2 mmol/L (3.5-5.1); PROTEIN TOTAL,TP 7.8 g/dL (6.4-8.2)
[2023-03-22 12:44] LABS: CORONAVIRUS COVID-19 NAA NEGATIVE (NEGATIVE); INFLUENZA A NAA NEGATIVE (NEGATIVE); INFLUENZA B NAA NEGATIVE (NEGATIVE)
[2023-03-22 15:04] VITALS: BP 126/87; PULSE 61
== END 2023-03-22 14:25 | disposition home or self-care (01) ==
LOC: MW.ED 11:31
DX: R06.02 Shortness of breath (principal); I10 Essential (primary) hypertension; I25.2 Old myocardial infarction; Z95.1 Presence of aortocoronary bypass graft; Z79.899 Other long term (current) drug therapy; Z79.82 Long term (current) use of aspirin; Z20.822 Contact with and (suspected) exposure to COVID-19
CPT/HCPCS: 0240U; 36415; 71045; 80053; 83735; 83880; 84484; 85025; 85379; 85610; 85730; 93005; 99285; A9270